=== PATIENT | female | born 1995 | race Two or more races ===

== ENCOUNTER → 2023-11-28 | Outpatient (CLI) | payer OTHER | END | disposition home or self-care (01) | LOC: EEVIPCON 11:00 → CT 11:14 | DX: S02.32XA Fracture of orbital floor, left side, initial encounter for closed fracture (principal); J32.0 Chronic maxillary sinusitis; J32.2 Chronic ethmoidal sinusitis; X58.XXXA Exposure to other specified factors, initial encounter; Y93.89 Activity, other specified; Y92.89 Other specified places as the place of occurrence of the external cause; Y99.8 Other external cause status | CPT/HCPCS: 70486 ==